=== PATIENT | female | born 1975 | race Caucasian/White ===

== ENCOUNTER 2016-09-25 16:33 | Emergency (ER) | payer OTHER ==
[2016-09-25 16:38] VITALS: BP 130/65; PULSE 83; TEMP 97.9; BMI 24.4
--- NOTE | 2016-09-25 16:51 | PDOC ---
History of Present Illness - General Chief Complaint: Back Pain Stated Complaint: BACK PAIN Time Seen by Provider: 09/25/16 16:48 History Source: Patient Exam Limitations: No Limitations - History of Present Illness Initial Comments: 09/25/16 17:24 Pt. is a 40 y/o female who presents to the ED complaining of low back pain for 2 weeks. Pt. states that the pain began after she tried to lift a heavy box. She states that the pain has been fluctuating in severity over the past two weeks, and today the pain was getting worse. The pain is made worse when she walks up the stairs. She admits to numbness and tingling down her L leg. Denies change in gait, loss of bladder/bowel function, saddle anesthesia. Denies fevers , chills, nausea, vomiting, frequency, urgency, dysuria, hematuria. Past History - Travel Traveled outside of the country in the last 30 days: No Close contact w/someone who was outside of country & ill: No - Past Medical History Allergies/Adverse Reactions: Allergies Allergy/AdvReac Type Severity Reaction Status Date / Time No Known Allergies Allergy Verified 09/25/16 16:34 Home Medications: Ambulatory Orders Cyclobenzaprine HCl [Flexeril 10 mg] 10 mg PO HS PRN #10 tablet 09/25/16 Ibuprofen 600 mg PO QID #28 tablet 09/25/16 Thyroid Disease: No - Reproductive History (#): 4 Para: 2 Therapeutic (s) & number: Yes (1) - Psycho/Social/Smoking Cessation Hx Anxiety: No Suicidal Ideation: No Smoking History: Never smoked Have you smoked in the past 12 months: No Information on smoking cessation initiated: No Hx Alcohol Use: No Drug/Substance Use Hx: No Substance Use Type: None Review of Systems - Review of Systems Able to Perform ROS?: Yes Is the patient limited Serbian proficient: No Constitutional: No: Chills, Fever, Weakness : No: Dysuria, Discharge, Frequency, Hematuria, Incontinence, Pain, Urgency Integumentary: No: Rash Neurological: Yes: Paresthesia (Down L leg). No: Headache, Numbness, Weakness, Unsteady Gait *Physical Exam - Vital Signs Last Vital Signs Temp Pulse Resp BP Pulse Ox 97.9 F 83 16 130/65 100 09/25/16 16:35 09/25/16 16:35 09/25/16 16:35 09/25/16 16:35 09/25/16 16:35 - Physical Exam General Appearance: Yes: Nourished, Appropriately Dressed, Mild Distress Neck: positive: Trachea midline, Supple. negative: Tender, Rigid, Decreased range of motion Musculoskeletal: positive: Muscle Spasm (L lower back with palpable knot), Other (+ flip test L leg; gait intact, able to toe walk, heel walk. (-) trendelenburg's). negative: Decreased Range of Motion (Has full range of motion , however pain with flexion of the back), Vertebral Tenderness Extremity: positive: Normal Capillary Refill Integumentary: positive: Normal Color, Dry Neurologic: positive: strap sewer II-XII NML intact, Fully Oriented, Alert, Normal Mood/ Affect, Normal Response, Motor Strength 5/5 Medical Decision Making - Medical Decision Making 09/25/16 17:31 Pt is a 40 y/o female who presents with low back pain. Pt has a palpable knot over her L lateral lower back with point tenderness. Neuro exam is normal. Most likely a muscle spasm. Will give toradol and valium here. Pt. has a ride home. Will discharge home at this time with Flexeril and ibuprofen. Pt. to follow up with PCP within one week. Pt understands all discharge instructions and all questions are answered at this time. *DC/Admit/Observation/Transfer Diagnosis at time of Disposition: Low back pain Qualifiers: Chronicity: acute Back pain laterality: left Sciatica presence: with sciatica Sciatica laterality: sciatica of left side Qualified Code(s): M54.42 - Lumbago with sciatica, left side - Discharge Dispostion Disposition: HOME Condition at time of disposition: Improved Admit: No - Prescriptions Prescriptions: Cyclobenzaprine HCl [Flexeril 10 mg] 10 mg PO HS PRN #10 tablet PRN Reason: Back Pain Ibuprofen 600 mg PO QID #28 tablet - Referrals Referrals: Miriam Fajardo MD [Primary Care Provider] - - Patient Instructions Printed Discharge Instructions: DI for Back Spasm Additional Instructions: Tienes un espasmo en la espalda. [place] la medicacin segn lo prescrito para ayudar a reducir el espasmo. Se le prescribi Flexeril. Annmarie medicamento le ayudar con el espasmo. Tmelo por la noche antes de irse a la cama. No maneje despus de nancy Flexeril, ya que le ty somnolencia. Usted puede usar lauren almohadilla de calefaccin en garcia espalda para ayudar con el dolor. Wu un seguimiento con garcia mdico de atencin primaria dentro de la semana. Vuelva a la [place] si usted desarrolla fiebre, escalofros, no puede controlar garcia miccin, o movimientos intestinales, o si tiene algn cambio en mir sntomas. Print Language: TURKISH
[2016-09-25] MEDS ORDERED: diazePAM 5 MG TABLET PO ONE (17:46)
[2016-09-25] MEDS ORDERED: KETOROLAC TROMETHAMINE 60 MG/2 ML VIAL IM ONE (17:46)
[2016-09-25] MEDS ORDERED: diazePAM 5 MG TABLET ONE (17:50)
[2016-09-25] MEDS ORDERED: KETOROLAC TROMETHAMINE 60 MG/2 ML VIAL ONE (17:50)
== END 2016-09-25 18:17 | disposition home or self-care (01) ==
LOC: JERFT 16:33
PROC: 3E0233Z Introduction of Anti-inflammatory into Muscle, Percutaneous Approach (ICD-10-PCS; principal; 2016-09-25)
DX: M54.42 Lumbago with sciatica, left side (principal); M62.830 Muscle spasm of back
CPT/HCPCS: 96372; 99281-25

== ENCOUNTER 2017-09-26 15:19 | Emergency (ER) | payer OTHER ==
--- NOTE | 2017-09-26 15:32 | PDOC ---
Rapid Medical Evaluation Time Seen by Provider: 09/26/17 15:28 Medical Evaluation: Allergies Allergy/AdvReac Type Severity Reaction Status Date / Time No Known Allergies Allergy Verified 09/26/17 15:23 Vital Signs Temp Pulse Resp BP Pulse Ox 97.7 F 82 20 119/66 100 09/26/17 15:23 09/26/17 15:23 09/26/17 15:23 09/26/17 15:23 09/26/17 15:23 09/26/17 15:30 I have performed a brief in-person evaluation of the patient. The patient presents with a chief complaint of : back pain and generalized bodyaches x 2 days. Denies abdominal pain, dysuria or cold symptoms Seen at Health system and sent to ed for further evaluation Pertinent physical exam findings. NAD lungs clear bilaterally abdomen non tender mild left cva tenderness I have ordered the following urinalysis, labs ordered This patient will proceed to the ED for further evaluation.
--- NOTE | 2017-09-26 15:56 | PDOC ---
History of Present Illness - General Chief Complaint: Pain Stated Complaint: ABD PAIN, HEADACHE, NAUSEA Time Seen by Provider: 09/26/17 15:28 - History of Present Illness Initial Comments: 09/26/17 15:55 Ms. Magaña is a 41 yo female w/ no pmh who presents for evaluation of 3 day history of right flank pain with associated nausea (without vomiting) and chills /body aches at home. She was previously at [facility] this afternoon and told she needed to present to the ER for pyelonephritis vs. kidney stone and decided to come here as she has been evaluated here before. Reports she has had chills and diarrhea for the past 24 hours that she characterizes as extremely loose stool. She also complains of current headache. The patient denies chest pain, shortness of breath, and dizziness. Denies fever , vomit, and constipation. Denies dysuria, frequency, urgency and hematuria. Allergies: NKDA Past History - Past Medical History Allergies/Adverse Reactions: Allergies Allergy/AdvReac Type Severity Reaction Status Date / Time No Known Allergies Allergy Verified 09/26/17 15:23 Home Medications: Ambulatory Orders Sulfamethoxazole/Trimethoprim [Bactrim Ds -] 1 tab PO BID #28 tablet 09/26/17 COPD: No Thyroid Disease: No - Reproductive History (#): 4 Para: 2 Therapeutic (s) & number: Yes (1) - Suicide/Smoking/Psychosocial Hx Smoking History: Never smoked Have you smoked in the past 12 months: No Hx Alcohol Use: No Drug/Substance Use Hx: No Substance Use Type: None Review of Systems - Review of Systems Comments:: 09/26/17 15:55 GENERAL/CONSTITUTIONAL: +Chills as described. No fever. No weakness. HEAD, EYES, EARS, NOSE AND THROAT: No change in vision. No ear pain or discharge. No sore throat. CARDIOVASCULAR: No chest pain or shortness of breath RESPIRATORY: No cough, wheezing, or hemoptysis. GASTROINTESTINAL: +Right flank pain. Nausea with diarrhea for 24 hours. No vomiting or constipation. GENITOURINARY: No dysuria, frequency, or change in urination. MUSCULOSKELETAL: No joint or muscle swelling or pain. No neck or back pain. SKIN: No rash NEUROLOGIC: +Current headache. No vertigo, loss of consciousness, or change in strength/sensation. ENDOCRINE: No increased thirst. No abnormal weight change HEMATOLOGIC/LYMPHATIC: No anemia, easy bleeding, or history of blood clots. ALLERGIC/IMMUNOLOGIC: No hives or skin allergy. *Physical Exam - Vital Signs Last Vital Signs Temp Pulse Resp BP Pulse Ox 97.7 F 82 20 119/66 100 09/26/17 15:23 09/26/17 15:23 09/26/17 15:23 09/26/17 15:23 09/26/17 15:23 - Physical Exam Comments: 09/26/17 15:55 GENERAL: Awake, alert, and fully oriented, in no acute distress HEAD: No signs of trauma, normocephalic, atraumatic EYES: PERRLA, EOMI, sclera anicteric, conjunctiva clear ENT: Auricles normal inspection, hearing grossly normal, nares patent, oropharynx clear without exudates. Moist mucosa NECK: Normal ROM, supple, no lymphadenopathy, JVD, or masses LUNGS: No distress, speaks full sentences, clear to auscultation bilaterally HEART: Regular rate and rhythm, normal S1 and S2, no murmurs, rubs or gallops, peripheral pulses normal and equal bilaterally. ABDOMEN: +LUQ and right flank TTP. Soft, normoactive bowel sounds. No guarding, no rebound. No masses EXTREMITIES: Normal inspection, Normal range of motion, no edema. No clubbing or cyanosis. NEUROLOGICAL: Cranial nerves II through XII grossly intact. Normal speech, normal gait, no focal sensorimotor deficits SKIN: Warm, Dry, normal turgor, no rashes or lesions noted. ED Treatment Course - LABORATORY CBC & Chemistry Diagram: 09/26/17 15:46 09/26/17 15:46 Medical Decision Making - Medical Decision Making 09/26/17 16:20 Ms. Magaña is a 41 yo female w/ no pmh who presents for evaluation of flank pain as described. 09/26/17 18:[address] sent to r/o stone; CT negative for acute process. Urine positive for 37 WBC's w/ trace leukocyte esterase. Treating patient for pyelonephritis and discharging to home. Laboratory Results - last 24 hr 09/26/17 09/26/17 09/26/17 15:46 15:46 15:46 WBC 7.0 RBC 5.16 D Hgb 11.5 D Hct 36.9 D MCV 71.4 L MCH 22.3 L MCHC 31.3 L RDW 18.8 H Plt Count 314 MPV 9.2 Neutrophils % 84.4 H D Lymphocytes % 10.3 D Monocytes % 4.6 Eosinophils % 0.3 Basophils % 0.4 Nucleated RBC % 0 PT with INR 11.10 INR 0.98 PTT (Actin FS) 30.1 Sodium Potassium Chloride Carbon Dioxide Anion Gap BUN Creatinine Creat Clearance w eGFR Random Glucose Calcium Total Bilirubin AST ALT Alkaline Phosphatase Total Protein Albumin Serum , Qual Urine Color Dkyellow Urine Appearance Cloudy Urine pH 5.0 Ur Specific [facility] [place] 1.031 Urine Protein 3+ H Urine Glucose (UA) Negative Urine Ketones Negative Urine Blood 2+ H Urine Nitrite Negative Urine Bilirubin Negative Urine Urobilinogen Negative Ur Leukocyte Esterase Trace Urine WBC (Auto) 37 Urine RBC (Auto) 3 Ur Epithelial Cells Moderate Urine Mucus Rare 09/26/17 09/26/17 15:46 15:46 WBC RBC Hgb Hct MCV MCH MCHC RDW Plt Count MPV Neutrophils % Lymphocytes % Monocytes % Eosinophils % Basophils % Nucleated RBC % PT with INR INR PTT (Actin FS) Sodium 139 Potassium 4.2 Chloride 110 H Carbon Dioxide 24 Anion Gap 5 L BUN 16 Creatinine 1.1 H Creat Clearance w eGFR 54.21 Random Glucose 100 Calcium 8.4 L Total Bilirubin 0.2 D AST 28 ALT 30 Alkaline Phosphatase 103 Total Protein 8.1 Albumin 3.4 Serum , Qual Negative Urine Color Urine Appearance Urine pH Ur Specific [facility] [place] Urine Protein Urine Glucose (UA) Urine Ketones Urine Blood Urine Nitrite Urine Bilirubin Urine Urobilinogen Ur Leukocyte Esterase Urine WBC (Auto) Urine RBC (Auto) Ur Epithelial Cells Urine Mucus *DC/Admit/Observation/Transfer Diagnosis at time of Disposition: Pyelonephritis - Discharge Dispostion Disposition: HOME - Referrals - Patient Instructions Printed Discharge Instructions: DI for Kidney Infection Additional Instructions: Take all medications as described. Return to ER if any increase in pain, fever, chills, or other concerning symptoms. Follow-up with primary care provider as needed for further evaluation. - Post Discharge Activity
[2017-09-26 16:03] LABS: BASO % 0.4 % (0-2.0); EOS % 0.3 % (0-4.5); HEMATOCRIT 36.9 % (32.4-45.2); HEMOGLOBIN 11.5 GM/dL (10.7-15.3); LYMPH % 10.3 % (8-40); MCH 22.3 pg (25.7-33.7); MCHC 31.3 g/dl (32.0-36.0); MEAN CELL VOLUME 71.4 fl (80-96); MEAN PLT VOLUME 9.2 fl (7.5-11.1); MONO % 4.6 % (3.8-10.2); NEUT % 84.4 % (42.8-82.8); PLATELET COUNT 314 K/MM3 (134-434); RBC 5.16 M/mm3 (3.60-5.2); RDW 18.8 % (11.6-15.6)
--- NOTE | 2017-09-26 16:24 | PDOC ---
Attending Attestation - HPI HPI: 09/26/17 17:00 The patient is a 41 year old female with no past medical history presents to the emergency department complaining of right flank pain for the past 3 days. The patient reports prior to presenting here, the patient was at [facility], where she was recommended to present to an emergency department. The patient reports pain to the right flank to the lower back, with associated symptoms of nausea, loose stool, and generalized body ache. Unable to obtain a detailed history, the patient is a poor historian. Denies taking any medication for the pains. Denies vomiting or constipation. Denies fever, chills, headache or cough. Denies any dysuria, hematuria, frequency or urgency to urinate. Denies chest pain, sob or wheezing. Allergies: NKDA Social history: None reported Surgical history:None reported PCP: Dr. Miriam Fajardo MD - Medical Decision Making 09/26/17 17:02 Documentation prepared by Analy Anton, acting as medical art therapist for Adele Olson MD. <Analy Anton - Last Filed: 09/26/17 17:02> - Resident Resident Name: Rob Slaughter - ED Attending Attestation I have performed the following: I have examined & evaluated the patient, The case was reviewed & discussed with the resident, I agree w/resident's findings & plan, Exceptions are as noted - Physicial Exam PE: GENERAL: Awake, alert, and fully oriented, in no acute distress. Well- appearing. HEAD: No signs of trauma EYES: PERRLA, EOMI, sclera anicteric, conjunctiva clear ENT: Auricles normal inspection, hearing grossly normal, nares patent, oropharynx clear without exudates. Moist mucosa NECK: Normal ROM, supple, no lymphadenopathy, JVD, or masses LUNGS: Breath sounds equal, clear to auscultation bilaterally. No wheezes, and no crackles HEART: Regular rate and rhythm, normal S1 and S2, no murmurs, rubs or gallops ABDOMEN: Soft, nontender, hyperactive bowel sounds. No guarding, no rebound. No masses. +R low back soft tissue tenderness. EXTREMITIES: Normal range of motion, no edema. No clubbing or cyanosis. No cords, erythema, or tenderness NEUROLOGICAL: Cranial nerves II through XII grossly intact. Normal speech, normal gait SKIN: Warm, Dry, normal turgor, no rashes or lesions noted. - Medical Decision Making 09/26/17 16:37 Pt presents with R flank pain, nausea, loose stools x1 day. Will obtain labs, urine, and spiral CT. Likely DC home. <Adele Olson - Last Filed: 09/26/17 18:23>
[2017-09-26] MEDS ORDERED: ACETAMINOPHEN 500 MG TABLET (FP) PO ONE (16:27)
[2017-09-26 16:29] LABS: ALBUMIN 3.4 g/dl (3.4-5.0); ALK PHOS 103 U/L (45-117); ANION GAP 5 (8-16); BILIRUBIN,TOTAL 0.2 mg/dL (0.2-1.0); BLOOD UREA NITROGEN 16 mg/dL (7-18); CALCIUM 8.4 mg/dL (8.5-10.1); CHLORIDE 110 mmol/L (98-107); CO2 24 mmol/L (21-32); CREATININE 1.1 mg/dL (0.55-1.02); GLUCOSE,RANDOM 100 mg/dL (74-106); POTASSIUM 4.2 mmol/L (3.5-5.1); SGOT/AST 28 U/L (15-37); SGPT/ALT 30 U/L (12-78); SODIUM 139 mmol/L (136-145); TOT PROT 8.1 g/dl (6.4-8.2)
[2017-09-26 16:31] LABS: URINE APPEARANCE CLOUDY; URINE BILIRUBIN NEGATIVE (<2.0 mg/dL); URINE COLOR DKYELLOW; URINE GLUCOSE (UA) NEGATIVE (NEGATIVE); URINE KETONE NEGATIVE (NEGATIVE); URINE LEUK ESTERASE TRACE (NEGATIVE); URINE NITRITE NEGATIVE (NEGATIVE); URINE PROTEIN 3+ (NEGATIVE); URINE UROBILINOGEN NEGATIVE mg/dL (0.2-1.0)
[2017-09-26 16:41] LABS: INR 0.98 (0.82-1.09); PROTHROMBIN TIME (PATIENT) 11.1 SEC (9.7-13.0)
[2017-09-26] MEDS ORDERED: ONDANSETRON *ODT* 4 MG TABLET SL ONE (16:41)
[2017-09-26] MEDS ORDERED: ONDANSETRON *ODT* 4 MG TABLET ONE (16:42)
[2017-09-26] MEDS ORDERED: ACETAMINOPHEN 500 MG TABLET (FP) ONE (16:42)
[2017-09-26 16:44] LABS: ACTIVATED PTT 30.1 SECONDS (26.9-34.4)
[2017-09-26 17:20] LABS: EPI CELLS MODERATE /HPF (FEW); URINE MUCUS RARE
[2017-09-26] MEDS ORDERED: SULFAMETHOXAZOLE/TRIMETHOPRIM 800MG/160MG D.S. TABLET PO ONE (18:52)
[2017-09-26] MEDS ORDERED: SULFAMETHOXAZOLE/TRIMETHOPRIM 800MG/160MG D.S. TABLET ONE (18:55)
[2017-09-26 19:15] VITALS: BP 119/72; PULSE 78; TEMP 98.3
== END 2017-09-26 19:05 | disposition home or self-care (01) ==
LOC: JER 15:19
DX: N12 Tubulo-interstitial nephritis, not specified as acute or chronic (principal)
CPT/HCPCS: 36415; 74176; 80053; 81003; 81015; 84703; 85025; 85610; 85730; 87086; 99283-25; Q0162

== ENCOUNTER 2017-10-04 22:57 | Emergency (ER) | payer SELFPAY ==
--- NOTE | 2017-10-05 00:17 | PDOC ---
History of Present Illness - General Chief Complaint: Allergic Reaction Stated Complaint: RASH Time Seen by Provider: 10/05/17 00:15 History Source: Patient - History of Present Illness Initial Comments: 10/05/17 01:06 41 year old Who has been taking Bactrim for a urinary tract infection 2 days ago noted to have generalized rash body. Denies fever, oral lesions, lip swelling, tongue swelling, respiratory distress or wheezing. Past History - Past Medical History Allergies/Adverse Reactions: Allergies Allergy/AdvReac Type Severity Reaction Status Date / Time No Known Allergies Allergy Verified 10/05/17 00:53 Home Medications: Ambulatory Orders Sulfamethoxazole/Trimethoprim [Bactrim Ds -] 1 tab PO BID #28 tablet 09/26/17 Calamine/Zinc Oxide [Calamine Lotion] 1 ml TP BID #1 bottle 10/05/17 Diphenhydramine HCl/Zinc Acet [Benadryl 2% Cream] 1 applic TP TID PRN #1 tube Famotidine [Pepcid] 40 mg PO DAILY #20 tablet 10/05/17 hydrOXYzine HCL [Atarax -] 25 mg PO TID PRN #10 tablet 10/05/17 predniSONE [Deltasone -] 40 mg PO DAILY #10 tablet 10/05/17 COPD: No Thyroid Disease: No - Reproductive History (#): 4 Para: 2 Therapeutic (s) & number: Yes (1) - Suicide/Smoking/Psychosocial Hx Smoking History: Never smoked Have you smoked in the past 12 months: No Hx Alcohol Use: No Drug/Substance Use Hx: No Substance Use Type: None Review of Systems - Review of Systems Able to Perform ROS?: Yes Is the patient limited Czech proficient: No Integumentary: Yes: Erythema, Pruritus, Rash *Physical Exam - Vital Signs 10/05/17 02:18 Vital Signs Period Temp Pulse Resp BP Sys/Moya Pulse Ox Last 24 Hr 97.9 F 70 19 99/50 100 - Physical Exam General Appearance: Yes: Appropriately Dressed HEENT: positive: Other (no oral swelling, oral lesion or sloughing noted. ) Respiratory/Chest: positive: Lungs Clear, Normal Breath Sounds Cardiovascular: positive: Regular Rhythm, Regular Rate Gastrointestinal/Abdominal: positive: Normal Bowel Sounds, Soft Rectal Exam: positive: heme negative stool, normal exam, NL Prostate Extremity: positive: Normal Capillary Refill, Normal Inspection, Normal Range of Motion, Other (maculopapular rash to body) Integumentary: positive: Normal Color, Dry, Warm Neurologic: positive: Fully Oriented, Alert, Normal Mood/Affect *DC/Admit/Observation/Transfer Diagnosis at time of Disposition: Allergic drug rash due to sulfonamide - Discharge Dispostion Disposition: HOME Condition at time of disposition: Fair - Prescriptions Prescriptions: Calamine/Zinc Oxide [Calamine Lotion] 1 ml TP BID #1 bottle Diphenhydramine HCl/Zinc Acet [Benadryl 2% Cream] 1 applic TP TID PRN #1 tube PRN Reason: For Itching Famotidine [Pepcid] 40 mg PO DAILY #20 tablet hydrOXYzine HCL [Atarax -] 25 mg PO TID PRN #10 tablet PRN Reason: For Itching predniSONE [Deltasone -] 40 mg PO DAILY #10 tablet - Referrals - Patient Instructions Printed Discharge Instructions: DI for Adverse Drug Reaction -- Allergic Additional Instructions: follow up with your doctor as soon as possible. continue prednisone as prescribed - Post Discharge Activity Forms/Work/School Notes: Back to Work
[2017-10-05] MEDS ORDERED: RANITIDINE HCL 150 MG TABLET (FP) PO ONE (00:39)
[2017-10-05] MEDS ORDERED: diphenhydrAMINE HCL 50 MG CAPSULE PO ONE (00:39)
[2017-10-05] MEDS ORDERED: predniSONE 20 MG TABLET (UD) PO ONE (00:39)
[2017-10-05 00:53] VITALS: BP 99/50; PULSE 70; TEMP 97.9; BMI 31.3
[2017-10-05] MEDS ORDERED: predniSONE 20 MG TABLET (UD) ONE (01:28)
[2017-10-05] MEDS ORDERED: RANITIDINE HCL 150 MG TABLET (FP) ONE (01:29)
[2017-10-05] MEDS ORDERED: diphenhydrAMINE HCL 25 MG CAPSULE (FP) PO ONE (01:29)
[2017-10-05] MEDS ORDERED: hydrOXYzine HCL 25 MG TABLET (FP) PO ONE (02:14)
== END 2017-10-05 05:03 | disposition home or self-care (01) ==
LOC: JER 22:57
DX: L27.0 Generalized skin eruption due to drugs and medicaments taken internally (principal); T37.0X5A Adverse effect of sulfonamides, initial encounter; Y92.038 Other place in apartment as the place of occurrence of the external cause
CPT/HCPCS: 99281-25

== ENCOUNTER 2019-02-22 23:13 | Emergency (ER) | payer OTHER ==
[2019-02-22 23:19] VITALS: BMI 30.2
[2019-02-22] MEDS ORDERED: MAG HYDROX/AL HYDROX/SIMETH -MYLANTA- ORAL SUSPENSION PO ONE (23:57)
[2019-02-22] MEDS ORDERED: PANTOPRAZOLE 20 MG TABLET (FP) PO ONE (23:57)
--- NOTE | 2019-02-23 00:04 | PDOC ---
History of Present Illness - General Chief Complaint: Pain Stated Complaint: ABD PAIN Time Seen by Provider: 02/22/19 23:52 History Source: Patient, Family Exam Limitations: No Limitations - History of Present Illness Is this a multiple visit Asthma Patient?: No Timing/Duration: 24 hours Severity: moderate Beta [place] Given by EMS(Core Measure): No Past History - Travel Traveled outside of the country in the last 30 days: No Close contact w/someone who was outside of country & ill: No - Past Medical History Allergies/Adverse Reactions: Allergies Allergy/AdvReac Type Severity Reaction Status Date / Time No Known Allergies Allergy Verified 10/05/17 00:53 Home Medications: Ambulatory Orders Sulfamethoxazole/Trimethoprim [Bactrim Ds -] 1 tab PO BID #28 tablet 09/26/17 Calamine/Zinc Oxide [Calamine Lotion] 1 ml TP BID #1 bottle 10/05/17 Diphenhydramine HCl/Zinc Acet [Benadryl 2% Cream] 1 applic TP TID PRN #1 tube Famotidine [Pepcid] 40 mg PO DAILY #20 tablet 10/05/17 hydrOXYzine HCL [Atarax -] 25 mg PO TID PRN #10 tablet 10/05/17 predniSONE [Deltasone -] 40 mg PO DAILY #10 tablet 10/05/17 COPD: No Thyroid Disease: No - Reproductive History (#): 4 Para: 2 Therapeutic (s) & number: Yes (1) - Psycho Social/Smoking Cessation Hx Smoking History: Never smoked Have you smoked in the past 12 months: No Information on smoking cessation initiated: No Hx Alcohol Use: No Drug/Substance Use Hx: No Substance Use Type: None Review of Systems - Review of Systems Able to Perform ROS?: Yes HEENTM: No: Symptoms Reported, See HPI, Eye Pain, Blurred Vision, Tearing, Recent change in vision, Double Vision, Cataracts, Ear Pain, Ocular Prothesis, Ear Discharge, Nose Pain, Nose Congestion, Tinnitus, Nose Bleeding, Hearing Loss , Throat Pain, Throat Swelling, Mouth Pain, Dental Problems, Difficulty Swallowing, Mouth Swelling, Other Respiratory: No: Symptoms reported, See HPI, Cough, Orthopnea, Shortness of Breath, SOB with Exertion, SOB at Rest, Stridor, Wheezing, Productive cough, Hemoptysis, Other Cardiac (ROS): No: Symptoms Reported, See HPI, Chest Pain, Edema, Irregular Heart Rate, Lightheadedness, Palpitations, Syncope, Chest Tightness, Other ABD/GI: Yes: Nausea, Indigestion. No: Abdominal Distended, Abd. Pain w/ defecation, Blood Streaked Bowels, Constipated, Diarrhea, Poor Appetite, Poor Fluid Intake, Rectal Bleeding, Abdominal cramping, Tarry Stools : No: Burning, Dysuria Integumentary: No: Bruising, Change in Color, Dryness, Erythema Neurological: No: Symptoms reported, Headache, Numbness, Paresthesia, Pre- Existing Deficit, Seizure, Tingling, Tremors, Weakness Psychiatric: No: Anxiety, Depression, Frequent Crying, Stressors *Physical Exam - Vital Signs Last Vital Signs Temp Pulse Resp BP Pulse Ox 98.2 F 70 20 125/83 100 02/22/19 23:14 02/22/19 23:14 02/22/19 23:14 02/22/19 23:14 02/22/19 23:14 - Physical Exam General Appearance: Yes: Nourished, Appropriately Dressed, Mild Distress HEENT: positive: EOMI, JOLYNN, Normal ENT Inspection, Normal Voice, Symmetrical, TMs Normal, Pharynx Normal Neck: positive: Tender, Trachea midline, Normal Thyroid Respiratory/Chest: positive: Chest Tender, Lungs Clear, Normal Breath Sounds Cardiovascular: positive: Regular Rhythm, Regular Rate, S1, S2 Gastrointestinal/Abdominal: positive: Normal Bowel Sounds, Flat, Soft, Tenderness, Other (burning in the espohagus area). 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 NML intact, Fully Oriented, Alert, Normal Mood/ Affect, Normal Response, Motor Strength 5/5 Heart Score/ECG Review - ECG Intrepretation Rhythm: Regular Rhythm - [place]: Normal - P and CO Prominent R with upright T in V1 (true posterior MD): No Delta Wave(s) Present: No WPW: No - QRS Poor R Wave Progression: No Q Wave Present: No - ST and T Early Repolarization: No Non Specific ST-T Wave changes: No - ECG Impressions Normal ECG: Yes Non-specific ST Elevation: No Ischemic Changes: No Bradycardia: No Torsades fe Pointes: No WPW: No ED Treatment Course - LABORATORY CBC & Chemistry Diagram: 02/23/19 00:08 02/23/19 00:08 Medical Decision Making - Medical Decision Making 02/23/19 00:48 Pt eats 2 meals per day and likely has GERD; she has microcytic anemia and she will be referred to GI specialist SHe will require PMD followup and improved diet/increased iron in diet. Discharge - Discharge Information Problems reviewed: Yes Clinical Impression/Diagnosis: GERD (gastroesophageal reflux disease) Condition: Stable Disposition: HOME - Admission No - Follow up/Referral - Patient Discharge Instructions Patient Printed Discharge Instructions: Gastroesophageal Reflux Disease ( Alternative Therapy), Heartburn -- Overview, Iron: Are You Getting Enough?, Good Food Sources of Iron Print Language: GERMAN - Post Discharge Activity
[2019-02-23] MEDS ORDERED: PANTOPRAZOLE 40 MG TABLET (FP) ONE (00:07)
[2019-02-23] MEDS ORDERED: MAG HYDROX/AL HYDROX/SIMETH 30 ML UNIT-DOSE CUP ONE (00:07)
[2019-02-23 00:29] LABS: BASO % 0.8 % (0-2.0); EOS % 1.7 % (0-4.5); HEMOGLOBIN 9.5 GM/dL (10.7-15.3); LYMPH % 30.7 % (8-40); MCH 21.5 pg (25.7-33.7); MCHC 30.8 g/dl (32.0-36.0); MEAN CELL VOLUME 69.8 fl (80-96); MEAN PLT VOLUME 9.3 fl (7.5-11.1); MONO % 7.6 % (3.8-10.2); NEUT % 59.2 % (42.8-82.8); PLATELET COUNT 385 K/MM3 (134-434); RBC 4.44 M/mm3 (3.60-5.2); RDW 18.2 % (11.6-15.6); WHITE BLOOD COUNT 8.8 K/mm3 (4.0-10.0)
[2019-02-23] MEDS ORDERED: PANTOPRAZOLE 20 MG TABLET (FP) PO ONE (00:43)
[2019-02-23 00:51] LABS: ALBUMIN 3.3 g/dl (3.4-5.0); BILIRUBIN,TOTAL 0.1 mg/dL (0.2-1); BLOOD UREA NITROGEN 18.2 mg/dL (7-18); CALCIUM 8.3 mg/dL (8.5-10.1); CREATININE 0.9 mg/dL (0.55-1.3); POTASSIUM 3.7 mmol/L (3.5-5.1)
[2019-02-23 01:21] VITALS: BP 120/75; PULSE 78; TEMP 98.5
--- NOTE | 2019-02-23 10:40 | EKG ---
Test Reason : Blood Pressure : / mmHG Vent. Rate : 062 BPM Atrial Rate : 062 BPM P-R Int : 172 ms QRS Dur : 092 ms QT Int : 430 ms P-R-T Axes : 055 048 005 degrees QTc Int : 436 ms NORMAL SINUS RHYTHM POSSIBLE LEFT ATRIAL ENLARGEMENT NONSPECIFIC T WAVE ABNORMALITY ABNORMAL ECG NO PREVIOUS ECGS AVAILABLE Confirmed by AMBER CATALAN MD ([id number]) on 02/23/2019 10:40:06 AM Referred By: Confirmed By:AMBER CATALAN MD
== END 2019-02-23 01:20 | disposition home or self-care (01) ==
LOC: JER 23:13
DX: K21.9 Gastro-esophageal reflux disease without esophagitis (principal)
CPT/HCPCS: 36415; 80053; 82150; 85025; 93005; 93010; 99283-25

== ENCOUNTER 2021-10-29 15:27 | Observation (INO) | payer OTHER ==
[2021-10-29] MEDS ORDERED: PANTOPRAZOLE SODIUM 40 MG VIAL IVPUSH ONE (16:43)
[2021-10-29] MEDS ORDERED: KETOROLAC TROMETHAMINE 30 MG/1 ML VIAL IVPUSH ONE (16:43)
[2021-10-29] MEDS ORDERED: KETOROLAC TROMETHAMINE 30 MG/1 ML VIAL ONE (17:10)
[2021-10-29] MEDS ORDERED: PANTOPRAZOLE SODIUM 40 MG/100 ML BAG IVPB ONE (17:10)
[2021-10-29 17:15] LABS: BASO % 0.9 % (0-2.0); EOS % 0.6 % (0-4.5); HEMATOCRIT 21.9 % (32.4-45.2); LYMPH % 23.1 % (8-40); MCH 20.2 pg (25.7-33.7); MCHC 30.6 g/dl (32.0-36.0); MEAN PLT VOLUME 8.2 fl (7.5-11.1); MONO % 7.1 % (3.8-10.2); NEUT % 68.3 % (42.8-82.8); PLATELET COUNT 320 10^3/uL (134-434); RBC 3.32 M/mm3 (3.60-5.2); RDW 17.6 % (11.6-15.6); WHITE BLOOD COUNT 5.7 K/mm3 (4.0-10.0)
[2021-10-29 17:17] LABS: HEMOGLOBIN 6.7 GM/dL (10.7-15.3)
[2021-10-29 17:22] LABS: HCG,QUALITATIVE URINE Negative
[2021-10-29 17:24] LABS: EPI CELLS >36 /uL (0-25.1); HYALINE CASTS 1 /uL (0-3.1); URINE APPEARANCE CLEAR; URINE BACTERIA 770 /uL (0-1359); URINE BILIRUBIN NEGATIVE (NEGATIVE); URINE COLOR YELLOW; URINE GLUCOSE (UA) NEGATIVE (NEGATIVE); URINE KETONE NEGATIVE (NEGATIVE); URINE LEUK ESTERASE 1+ (NEGATIVE); URINE NITRITE NEGATIVE (NEGATIVE); URINE PROTEIN 3+ (NEGATIVE); URINE RBC 43 /uL (0-23.9); URINE UROBILINOGEN 0.2 mg/dL (0.2-1.0); URINE WBC 53 /uL (0-25.8)
[2021-10-29 17:38] LABS: CALCIUM 8.5 mg/dL (8.5-10.1)
[2021-10-29 17:39] LABS: ALBUMIN 3.3 g/dl (3.4-5.0); BLOOD UREA NITROGEN 19.1 mg/dL (7-18)
[2021-10-29 17:42] LABS: CREATININE 0.8 mg/dL (0.55-1.3)
[2021-10-29 17:43] LABS: BILIRUBIN,TOTAL 0.4 mg/dL (0.2-1)
[2021-10-29 17:46] LABS: ANISOCYTOSIS 2+; MACROCYTOSIS 0; OVALOCYTE 1+; TARGET CELLS 2+
[2021-10-29 17:48] LABS: INR 1.04 (0.83-1.09)
[2021-10-29] MEDS ORDERED: morphine CARPU-JECT 4 MG/1 ML DISP.SYRIN IVPUSH ONE (20:26)
[2021-10-29] MEDS ORDERED: morphine SULFATE 4 MG/ML VIAL ONE (21:29)
[2021-10-30 01:05] LABS: RETICULOCYTES 1.63 % (0.5-1.5)
[2021-10-30 03:28] VITALS: BMI 25.0
[2021-10-30] MEDS: POLYETHYLENE GLYCOL (HEALTHYLAX) 3350 17 GM PACKET PO SCH ×4 (03:56→21:44)
[2021-10-30] MEDS ORDERED: ACETAMINOPHEN 1000 MG/100 ML BAG IVPB ONE (05:14)
[2021-10-30] MEDS ORDERED: ACETAMINOPHEN 325 MG TABLET (FP) PO PRN (06:27)
[2021-10-30] MEDS ORDERED: DEXTROSE 5%-0.45% SALINE 1,000 ML IV SCH (07:45)
[2021-10-30] MEDS ORDERED: IRON SUCROSE INJECTION 200 MG in SODIUM CHLORIDE 90 ML IVPB ONE (09:00)
[2021-10-30] MEDS ORDERED: cefTRIAXone SODIUM 1 GM VIAL ONE (09:05)
[2021-10-30] MEDS ORDERED: DEXTROSE 5%-WATER - 50 ML IVPB ONE (09:06)
[2021-10-30] MEDS: FAMOTIDINE 20 MG TABLET PO SCH (09:11)
[2021-10-30] MEDS: CEFTRIAXONE 1 GM in DEXTROSE 5%-WATER - 50 ML IVPB SCH (09:11)
[2021-10-30] MEDS ORDERED: ENOXAPARIN NA (PORCINE) 40 MG/0.4 ML DISP.SYRIN SQ SCH (10:00)
[2021-10-30 10:55] LABS: HEMATOCRIT 23.4 % (32.4-45.2); HEMOGLOBIN 7.4 GM/dL (10.7-15.3); MCH 21.9 pg (25.7-33.7); MCHC 31.8 g/dl (32.0-36.0); MEAN CELL VOLUME 68.8 fl (80-96); MEAN PLT VOLUME 9.5 fl (7.5-11.1); PLATELET COUNT 276 10^3/uL (134-434); RBC 3.41 M/mm3 (3.60-5.2); RDW 19.9 % (11.6-15.6); WHITE BLOOD COUNT 7.9 K/mm3 (4.0-10.0)
[2021-10-30 11:22] LABS: CALCIUM 8.3 mg/dL (8.5-10.1)
[2021-10-30 11:23] LABS: ALBUMIN 3.2 g/dl (3.4-5.0); BLOOD UREA NITROGEN 15.1 mg/dL (7-18); MAGNESIUM 1.9 mg/dL (1.8-2.4)
[2021-10-30 11:26] LABS: CREATININE 0.9 mg/dL (0.55-1.3); PHOSPHOROUS 3.8 mg/dL (2.5-4.9)
[2021-10-30 11:27] LABS: TOT PROT 6.6 g/dl (6.4-8.2)
[2021-10-30 11:28] LABS: BILIRUBIN,TOTAL 0.8 mg/dL (0.2-1)
[2021-10-30 11:43] LABS: INR 1.07 (0.83-1.09); PROTHROMBIN TIME (PATIENT) 12.3 SEC (9.7-13.0)
[2021-10-30] MEDS: PANTOPRAZOLE SODIUM 40 MG VIAL IVPUSH SCH ×2 (11:56→21:44)
[2021-10-30 12:03] LABS: ANISOCYTOSIS 3+; MACROCYTOSIS 0
[2021-10-31] MEDS: POLYETHYLENE GLYCOL (HEALTHYLAX) 3350 17 GM PACKET PO SCH ×2 (05:45→14:05)
[2021-10-31] MEDS ORDERED: cefTRIAXone SODIUM 1 GM VIAL ONE (09:14)
[2021-10-31] MEDS ORDERED: DEXTROSE 5%-WATER - 50 ML IVPB ONE (09:14)
[2021-10-31] MEDS: CEFTRIAXONE 1 GM in DEXTROSE 5%-WATER - 50 ML IVPB SCH (09:20)
[2021-10-31] MEDS: FAMOTIDINE 20 MG TABLET PO SCH (09:20)
[2021-10-31] MEDS: PANTOPRAZOLE SODIUM 40 MG VIAL IVPUSH SCH (09:20)
[2021-10-31 10:22] LABS: BASO % 1.1 % (0-2.0); HEMATOCRIT 25.5 % (32.4-45.2); LYMPH % 18.2 % (8-40); MCH 21.6 pg (25.7-33.7); MCHC 31.5 g/dl (32.0-36.0); MEAN CELL VOLUME 68.8 fl (80-96); MEAN PLT VOLUME 9.3 fl (7.5-11.1); NEUT % 71.7 % (42.8-82.8); PLATELET COUNT 289 10^3/uL (134-434); RBC 3.71 M/mm3 (3.60-5.2); RDW 19.8 % (11.6-15.6); WHITE BLOOD COUNT 4.3 K/mm3 (4.0-10.0)
[2021-10-31 11:05] LABS: ALBUMIN 3.1 g/dl (3.4-5.0); BLOOD UREA NITROGEN 13.8 mg/dL (7-18)
[2021-10-31 11:06] LABS: CALCIUM 8.7 mg/dL (8.5-10.1)
[2021-10-31 11:08] LABS: CREATININE 0.9 mg/dL (0.55-1.3)
[2021-10-31 11:09] LABS: BILIRUBIN,TOTAL 0.7 mg/dL (0.2-1)
[2021-10-31 11:10] LABS: TOT PROT 6.7 g/dl (6.4-8.2)
[2021-10-31 14:20] VITALS: BP 115/70; PULSE 62; TEMP 97.8
== END 2021-10-31 16:25 | disposition home or self-care (01) ==
LOC: JER 15:27 → JERBED 20:07 → INTOOBSV 20:07 → UNDOADMOB 20:07 → JERBED 10-30 01:38 → J8W 10-30 01:38 → JERBED 10-30 15:53
PROVIDERS: ADMIT Internal Medicine; ATTEND Nurse Practitioner Acute Care
PROC: 3E033NZ Introduction of Analgesics, Hypnotics, Sedatives into Peripheral Vein, Percutaneous Approach (ICD-10-PCS; principal; 2021-10-30)
PROC: 3E03329 Introduction of Other Anti-infective into Peripheral Vein, Percutaneous Approach (ICD-10-PCS; 2021-10-30)
PROC: 3E0337Z Introduction of Electrolytic and Water Balance Substance into Peripheral Vein, Percutaneous Approach (ICD-10-PCS; 2021-10-30)
PROC: 3E023GC Introduction of Other Therapeutic Substance into Muscle, Percutaneous Approach (ICD-10-PCS; 2021-10-30)
PROC: 3E033GC Introduction of Other Therapeutic Substance into Peripheral Vein, Percutaneous Approach (ICD-10-PCS; 2021-10-30)
DX: N83.10 Corpus luteum cyst of ovary, unspecified side (principal); N92.0 Excessive and frequent menstruation with regular cycle; D50.9 Iron deficiency anemia, unspecified; R73.03 Prediabetes; R10.9 Unspecified abdominal pain; N39.0 Urinary tract infection, site not specified
CPT/HCPCS: 0241U-QW; 36415; 36430; 74177-TC; 80053; 81003; 82728; 83540; 83550; 83690; 83735; 84100; 84443; 84484; 84703; 85025; 85045; 85610; 86850; 86900; 86901; 86922; 87086; 93005; 93010; 96365; 96367; 96372; 96375; 99285-25; G0378; J1756; P9058; Q9967